=== PATIENT | female | born 1965 | race Two or more races ===

== ENCOUNTER 2017-10-05 11:39 | Inpatient (IN) | payer OTHER ==
[~2017-10-05] VITALS: Ht 152.4 cm; Wt 89.3 kg
[2017-10-05 13:28] LABS: Basophils # (auto) 0.1 uL; Basophils % (auto) 0.8 % (0.0-2.0); Eosinophils # (auto) 0.1 uL; Eosinophils % (auto) 1.1 % (0.0-7.0); Hematocrit 36.2 % (36.0-46.0); Hemoglobin 11.8 g/dL (12.2-16.2); Lymphocytes # (auto) 0.9 uL; Lymphocytes % (auto) 9.6 % (10.0-50.0); Mean Corpuscular Hgb Conc. 32.6 g/dL (32.0-36.0); Mean Corpuscular Volume 82.8 fL (80.0-100.0); Monocytes # (auto) 0.4 uL; Monocytes % (auto) 4.2 % (0.0-12.0); Neutrophils # (auto) 7.9 uL; Neutrophils % (auto) 84.3 % (37.0-80.0); Nucleated Red Blood Cells % 0.1 %; Platelet Count (auto) 252 10^3/uL (140-450); Red Blood Cells 4.37 10^6/uL (4.0-5.20); Red Cell Distribution Width 14.1 % (11.8-14.3); White Blood Cell 9.4 10^3/uL (4.4-10.8)
[2017-10-05 13:44] LABS: Albumin 3.4 g/dL (3.4-5.0); Calcium 9.2 mg/dL (8.5-10.1); Potassium 4.7 mmol/L (3.5-5.1)
[2017-10-05 13:54] LABS: Bilirubin, Total 0.5 mg/dL (0.2-1.0); Total Protein 8.2 g/dL (6.4-8.2)
[2017-10-05] MEDS ORDERED: HYDROcodone-ACET 5/325MG TAB PO ONE (21:00)
[2017-10-06] MEDS ORDERED: cefTRIAXone 1GM/10ml IVPUSH 10 ML IV ONE (00:30)
[2017-10-06] MEDS ORDERED: DEXTROSE (50%) 50ML SYRG IV PRN (02:30)
[2017-10-06] MEDS ORDERED: ONDANSETRON HCL 4 MG/2 ML VIAL IV PRN (02:30)
[2017-10-06] MEDS ORDERED: MORPHINE SULFATE 4 MG/ML SYR/VIAL IV PRN (02:30)
[2017-10-06] MEDS: CLINDAMYCIN 600MG IV 50 ML IV SCH ×3 (03:00→18:26)
[2017-10-06 04:36] LABS: Basophils # (auto) 0.1 uL; Basophils % (auto) 0.8 % (0.0-2.0); Eosinophils # (auto) 0 uL; Eosinophils % (auto) 0.6 % (0.0-7.0); Hematocrit 34.4 % (36.0-46.0); Hemoglobin 11.3 g/dL (12.2-16.2); Lymphocytes # (auto) 1.4 uL; Lymphocytes % (auto) 17.9 % (10.0-50.0); Mean Corpuscular Hemoglobin 27.1 pg (28.0-32.0); Mean Corpuscular Hgb Conc. 32.7 g/dL (32.0-36.0); Mean Corpuscular Volume 82.9 fL (80.0-100.0); Monocytes # (auto) 0.5 uL; Monocytes % (auto) 6.7 % (0.0-12.0); Nucleated Red Blood Cells % 0.1 %; Platelet Count (auto) 216 10^3/uL (140-450); Red Blood Cells 4.15 10^6/uL (4.0-5.20); Red Cell Distribution Width 14.1 % (11.8-14.3); White Blood Cell 8.1 10^3/uL (4.4-10.8)
[2017-10-06 04:52] LABS: BUN/Creatinine Ratio 22.9; Calcium 8.8 mg/dL (8.5-10.1); Potassium 4.1 mmol/L (3.5-5.1)
[2017-10-06 05:56] LABS: Urine Bacteria FEW /hpf (None Seen); Urine Blood TRACE /uL (Negative); Urine Mucus FEW (None Seen); Urine Specific Gravity 1.013 (1.001-1.035); Urine WBC 9 /hpf (0 - 5)
[2017-10-06] MEDS: ACCU-CHEK COMFORT CURVE STRIP VI SCH ×4 (07:51→21:10)
[2017-10-06] MEDS: InsuLIN REG 1unit/0.01ml Soln (100units/ml) SC SCH ×4 (08:03→21:10)
[2017-10-06] MEDS: ACETAMINOPHEN 500 MG TAB PO PRN (14:37)
[2017-10-06 17:11] VITALS: BP 110/64
[2017-10-06] MEDS ORDERED: INSLANTI SC (17:28)
[2017-10-06] MEDS ORDERED: INSREG3 SC (17:28)
[2017-10-06] MEDS ORDERED: GABA300C10 PO (17:28)
[2017-10-06] MEDS: cefTRIAXone 1GM/10ml IVPUSH 10 ML IV SCH (20:38)
[2017-10-06 22:00] VITALS: BP 144/78
[2017-10-07] MEDS: ACETAMINOPHEN 500 MG TAB PO PRN ×2 (01:20→23:05)
[2017-10-07] MEDS: CLINDAMYCIN 600MG IV 50 ML IV SCH ×3 (02:31→18:44)
[2017-10-07 05:00] VITALS: BP 131/65
[2017-10-07] MEDS: ACCU-CHEK COMFORT CURVE STRIP VI SCH ×4 (06:03→22:23)
[2017-10-07] MEDS: InsuLIN REG 1unit/0.01ml Soln (100units/ml) SC SCH ×4 (06:06→23:00)
[2017-10-07 07:07] LABS: Basophils # (auto) 0.1 uL; Basophils % (auto) 0.7 % (0.0-2.0); Eosinophils # (auto) 0.2 uL; Eosinophils % (auto) 2.6 % (0.0-7.0); Hematocrit 34.1 % (36.0-46.0); Hemoglobin 11.3 g/dL (12.2-16.2); Lymphocytes # (auto) 1.6 uL; Lymphocytes % (auto) 19.7 % (10.0-50.0); Mean Corpuscular Hemoglobin 27.4 pg (28.0-32.0); Mean Corpuscular Hgb Conc. 33.2 g/dL (32.0-36.0); Mean Corpuscular Volume 82.3 fL (80.0-100.0); Monocytes # (auto) 0.7 uL; Monocytes % (auto) 7.9 % (0.0-12.0); Neutrophils # (auto) 5.8 uL; Neutrophils % (auto) 69.1 % (37.0-80.0); Nucleated Red Blood Cells % 0.1 %; Platelet Count (auto) 216 10^3/uL (140-450); Red Blood Cells 4.14 10^6/uL (4.0-5.20); Red Cell Distribution Width 14.4 % (11.8-14.3); White Blood Cell 8.4 10^3/uL (4.4-10.8)
[2017-10-07 07:25] LABS: BUN/Creatinine Ratio 19.5; Bilirubin, Total 0.4 mg/dL (0.2-1.0); Calcium 8.6 mg/dL (8.5-10.1); Magnesium 2.3 mg/dL (1.6-2.6); Phosphorus 4.3 mg/dL (2.5-4.90); Potassium 4.1 mmol/L (3.5-5.1); Total Protein 7.7 g/dL (6.4-8.2)
[2017-10-07 08:48] VITALS: BP 109/66
[2017-10-07 13:03] VITALS: BP 125/82
[2017-10-07 17:04] VITALS: BP 110/67
[2017-10-07 20:00] VITALS: BP 118/72
[2017-10-07] MEDS: cefTRIAXone 1GM/10ml IVPUSH 10 ML IV SCH ×2 (22:23→22:58)
[2017-10-07 22:45] VITALS: BP 118/72
[2017-10-07] MEDS: INSULIN DETEMIR(LEVEMIR) 1unit/0.01ml Soln (100units/ml) SC SCH (22:59)
[2017-10-08] MEDS: CLINDAMYCIN 600MG IV 50 ML IV SCH ×3 (02:35→18:10)
[2017-10-08 05:18] VITALS: BP 99/55
[2017-10-08] MEDS: InsuLIN REG 1unit/0.01ml Soln (100units/ml) SC SCH ×4 (06:37→21:38)
[2017-10-08] MEDS: ACCU-CHEK COMFORT CURVE STRIP VI SCH ×4 (06:37→21:31)
[2017-10-08 08:00] VITALS: BP 114/67
[2017-10-08] MEDS: INSULIN DETEMIR(LEVEMIR) 1unit/0.01ml Soln (100units/ml) SC SCH ×2 (10:38→21:39)
[2017-10-08 12:00] VITALS: BP 121/69
[2017-10-08] MEDS: ACETAMINOPHEN 500 MG TAB PO PRN (14:34)
[2017-10-08 17:15] VITALS: BP 107/68
[2017-10-08 17:26] LABS: Partial Thromboplastin Time 31.3 sec (22.64-33.71); Prothrombin Time 10.9 sec (9.37-12.3)
[2017-10-08 20:00] VITALS: BP 117/66
[2017-10-08] MEDS: cefTRIAXone 1GM/10ml IVPUSH 10 ML IV SCH (21:31)
[2017-10-08 22:39] VITALS: BP 117/66
[2017-10-09] MEDS: CLINDAMYCIN 600MG IV 50 ML IV SCH ×3 (03:06→19:00)
[2017-10-09 04:53] VITALS: BP 118/76
[2017-10-09] MEDS: ACCU-CHEK COMFORT CURVE STRIP VI SCH ×3 (06:01→17:00)
[2017-10-09] MEDS: InsuLIN REG 1unit/0.01ml Soln (100units/ml) SC SCH ×3 (06:01→17:00)
[2017-10-09] MEDS ORDERED: NEOMYCIN-BACITRACIN-POLYM 15GM TOP OINT TOP ONE (06:45)
[2017-10-09] MEDS ORDERED: ceFAZolin 1GM VL ONE (06:45)
[2017-10-09] MEDS ORDERED: ceFAZolin 1GM/50ML 50 ML IV ONE (07:20)
[2017-10-09] MEDS ORDERED: MIDAZOLAM HCL 1MG/1ML-2 ML VIAL ONE (07:30)
[2017-10-09] MEDS ORDERED: fentaNYL CITRATE 100 MCG/2 ML VL ONE (07:30)
[2017-10-09] MEDS ORDERED: PROPOFOL 10 MG/ML 20 ML IV ONE (07:33)
[2017-10-09] MEDS ORDERED: ONDANSETRON HCL 4 MG/2 ML VIAL IV ONE (08:00)
[2017-10-09] MEDS ORDERED: fentaNYL CITRATE 100 MCG/2 ML VL IV ONE (08:00)
[2017-10-09] MEDS ORDERED: ePHEDrine SULFATE 50 MG/ML AMP IV PRN (08:00)
[2017-10-09] MEDS ORDERED: hydrALAZINE HCL 20 MG/ML VL IV PRN (08:00)
[2017-10-09 09:30] VITALS: BP 112/64
[2017-10-09] MEDS: HYDROcodone-ACET 5/325MG TAB PO PRN ×2 (10:44→19:06)
[2017-10-09] MEDS: INSULIN DETEMIR(LEVEMIR) 1unit/0.01ml Soln (100units/ml) SC SCH (10:44)
[2017-10-09] MEDS ORDERED: DOCUSATE SOD 100 MG CAP PO ONE (11:00)
[2017-10-09 11:36] VITALS: BP 135/80
[2017-10-09 15:58] VITALS: BP 135/80
[2017-10-09 16:01] VITALS: BP 136/85
== END 2017-10-09 20:00 | disposition home or self-care (01) | DRG 872 ==
LOC: ER 11:39 → OVERFLOW 11:40 → CENTRAL 10-06 16:15
PROVIDERS: ADMIT Nurse Practitioner Family; ATTEND Internal Medicine
PROC: 0Y9M3ZZ Drainage of Right Foot, Percutaneous Approach (ICD-10-PCS; principal; 2017-10-09 07:29)
DX: A41.9 Sepsis, unspecified organism (principal); E11.40 Type 2 diabetes mellitus with diabetic neuropathy, unspecified; L02.611 Cutaneous abscess of right foot; L03.115 Cellulitis of right lower limb; E87.1 Hypo-osmolality and hyponatremia; E11.65 Type 2 diabetes mellitus with hyperglycemia; B95.62 Methicillin resistant Staphylococcus aureus infection as the cause of diseases classified elsewhere; D64.9 Anemia, unspecified; E66.9 Obesity, unspecified; E78.5 Hyperlipidemia, unspecified; I10 Essential (primary) hypertension; E78.00 Pure hypercholesterolemia, unspecified; Z68.38 Body mass index [BMI] 38.0-38.9, adult
CPT/HCPCS: 36415; 71045; 73630; 73700; 80048; 80053; 81001; 82962; 83036; 83735; 84100; 85025; 85610; 85730; 87040; 87070; 87075; 87077; 87081; 87186; 87205; 93005; 96374; J0690; J1815; J2250; J2704; J3490